=== PATIENT | male | born 1950 | race Caucasian/White ===

== ENCOUNTER 2022-10-31 03:26 | Emergency (ER) | payer MEDICARE, SELFPAY ==
[2022-10-31 03:34] VITALS: BP 187/105; PULSE 64; RESP 18; TEMP 36.6; O2SAT 96
--- NOTE | 2022-10-31 03:41 | ED_ITS ---
HPI - General Adult General Time Seen by Provider: 03:41 Date Seen: 10/31/22 Chief complaint: Back Injury/Pain Stated complaint: back pain Time Seen by Provider: 10/31/22 03:40 Source: patient, EMS, RN notes reviewed and old records reviewed Limitations: no limitations and language barrier History of Present Illness HPI narrative: 72-year-old male who comes in today after a fall. Patient is normally in a wheelchair, apparently got up and lost his balance, and fell. Denies head injury or loss of consciousness. He notes chronic back pain which sometimes comes in waves and neck is his legs buckle. He says his legs feel numb and weak for the past 10 days. He denies chest pain, nausea, vomiting. Says he feels a little short of breath. No bowel or bladder incontinence. Related Data Home Medications Medication Instructions Recorded Confirmed haloperidol 10 mg tablet 10 mg PO BID 10/31/22 10/31/22 ipratropium 18 mcg-albuterol 103 spray inhalation 10/31/22 mcg/actuation aerosol inhaler metformin 750 mg tablet,extended 750 mg PO BID 10/31/22 10/31/22 release 24 hr ziprasidone HCl 40 mg capsule 40 mg PO BID 10/31/22 10/31/22 Allergies Allergy/AdvReac Type Severity Reaction Status Date / Time No Known Drug Allergies Allergy Verified 10/31/22 03:39 [facility] Social History Smoking Status: Current every day smoker Non-prescribed substance use: denies use Exam Narrative: Exam Narrative: General: Well-developed and well-nourished, no acute distress Head: Atraumatic and normocephalic Eyes: Pupils are equal reactive, extraocular motions intact, conjunctiva clear ENT: External nose and ears are normal, posterior pharynx without erythema or exudate Neck: No midline cervical tenderness, full spontaneous range of motion the neck, trachea midline, no adenopathy Heart: Regular rate and rhythm no murmurs or thrills Lungs: Frequent dry cough, expiratory wheezes bilaterally with bibasilar crackles Abdomen: Soft, nontender, nondistended with active bowel sounds Musculoskeletal: No tenderness, deformity, or edema Neurologic: Awake, alert, and oriented x3, cranial nerves intact. Patient moves upper extremities easily. Diffusely decreased sensation of the lower extremities weakly withdraws to pain on both sides but less on the right. Weak plantar flexion, no dorsiflexion, unable to flex or extend the knees. Unable to straight leg raise and does not maintain posture when the leg is raised off the bed, leg falls to the bed when released. Psych: Mood and affect are appropriate Skin: No rashes Const: Vital Signs, click to edit/add: Vital Signs - 24 hr 10/31/22 03:34 10/31/22 04:43 10/31/22 04:56 Temperature 98 F Pulse Rate [Pulse Oximeter] 64 75 64 Respiratory Rate 18 18 18 Blood Pressure [Ri ght Upper Arm] 187/105 H 167/94 H Pulse Oximetry 96 96 94 Oxygen Delivery Me thod Room Air Room Air Room Air Course Course Hospital Course: Patient seen examined, prior records reviewed. Patient presents today with chronic back pain and says his legs feel weak for the last 10 days. On exam, weekly withdraws to pain on both sides but cannot voluntarily dorsiflex at the ankle nor flex or extend at the knee. Cannot straight leg raise from the bed or keep the leg elevated with assistance,, legs drop the bed when released. Diminished reflexes bilaterally, no inducible clonus. He does have a cough although no hypoxia or fever. Labs are ordered along with chest x-ray med CT scan of the thoracic and lumbar spine. Reevaluation(s) Time of Reevaluation #1: 04:24 Reevaluation #1: 04:[address] scan of the chest independently interpreted by me demonstrates some bronchial thickening and atelectasis but no definite infiltrate or effusion, there are couple of nodules. CT of the thoracic spine appears to show a lytic bony lesion at T4, CT scan of the lumbar spine does not demonstrate any acute abnormality. . Time of Reevaluation #2: 05:09 Reevaluation #2: Care discussed with Dr. Laura, radiology with T5 pathologic compression fracture with severe foraminal stenosis and soft tissue mass, also lung tumor. Updated patient with diagnosis, patient has no preference as to transfer location Time of Reevaluation #3: 05:48 Reevaluation #3: Care discussed with Dr. Vaca, ED attending at [facility] who accepts the patient for transfer as patient will need neurosurgical and neurology evaluation as well as advanced imaging. Vital Signs Vital signs: Initial Vital Signs Temperature 98 F 10/31/22 03:34 Temperature Source Temporal Artery Scan 10/31/22 03:34 Pulse Rate 64 10/31/22 03:34 Respiratory Rate 18 10/31/22 03:34 Blood Pressure 187/105 H 10/31/22 03:34 Blood Pressure Mean 132 H 10/31/22 03:34 Blood Pressure Position Supine 10/31/22 03:34 Pulse Oximetry 96 10/31/22 03:34 Oxygen Delivery Method Room Air 10/31/22 03:34 Vital Signs Temperature 98 F 10/31/22 03:34 Pulse Rate 64 10/31/22 03:34 Respiratory Rate 18 10/31/22 03:34 Blood Pressure 187/105 H 10/31/22 03:34 Pulse Oximetry 96 10/31/22 03:34 Oxygen Delivery Method Room Air 10/31/22 03:34 Temperature 98 F 10/31/22 03:34 Pulse Rate 64 10/31/22 04:56 Respiratory Rate 18 10/31/22 04:56 Blood Pressure 167/94 H 10/31/22 04:56 Pulse Oximetry 94 10/31/22 04:56 Oxygen Delivery Method Room Air 10/31/22 04:56 Medical Decision Making Lab Data Labs: Lab Results 10/31/22 Range/Units 04:29 WBC 10.22 (4.50-11.00) K/uL RBC 4.90 (4.30-5.90) m/uL Hgb 15.4 (13.5-17.5) gm/dL Hct 45.6 (37.0-53.0) % MCV 93 (80-100) fL MCH 31 (26-34) pg MCHC 34 (32-36) gm/dL RDW Coeff of William 13.1 (11.5-15.5) % Plt Count 249 (140-440) K/uL Neut % (Auto) 83.1 H (42.0-72.0) % Lymph % (Auto) 9.3 L (20-44) % Nolan % (Auto) 6.7 (0.0-11.0) % Eos % (Auto) 0.7 (0.0-7.0) % Baso % (Auto) 0.1 (0.0-3.0) % Neut # (Auto) 8.50 H (1.7-7.0) K/uL Lymph # (Auto) 1.00 (0.90-2.90) K/uL Nolan # (Auto) 0.70 (0.00-0.90) K/UL Eos # (Auto) 0.07 (0.00-0.50) K/uL Baso # (Auto) 0.01 (0.00-0.30) K/uL Sodium 140 (135-149) mmol/L Potassium 3.4 L (3.6-5.1) mmol/L Chloride 104 (96-114) mmol/L Carbon Dioxide 28 (20-32) mmol/L BUN 9 (7-30) mg/dL Creatinine 0.7 (0.5-1.5) mg/dL Estimated GFR 99 ml/min Glucose 115 (60-115) mg/dL Calcium 9.5 (8.4-10.6) mg/dL Magnesium 1.7 (1.5-2.6) mg/dL NT-Pro-B Natriuret Pep 49 pg/mL Critical Care Time Critical Care Time Critical Care Time: Yes (Thoracic fracture/mass with neurologic deficits) Attestation: The patient required my highest level preparedness to intervene emergently and I personally spent this critical care time directly and personally managing the patient. This critical care time included: Obtaining a history; Examining the patient; Pulse oximetry; Ordering and reviewing of studies; Arranging urgent treatment with development of a management plan; Evaluation of patients response to treatment; Frequent reassessment discussions with other providers. This critical care time was performed to assess and manage the high probability of imminent life-threatening deterioration that could result in multiorgan failure. It was exclusive of separate billable procedures and treating other patients and teaching time. Total Critical Care Time in Minutes: 120 Discharge Plan Discharge Clinical Impression: Schizophrenia, Weakness, COPD (chronic obstructive pulmonary disease), Current nicotine use Prescriptions: No Action haloperidol 10 mg tablet 10 mg PO BID ziprasidone HCl 40 mg capsule 40 mg PO BID metformin 750 mg tablet extended release 24 hr 750 mg PO BID ipratropium-albuterol 18-103 mcg/actuation aerosol inhalation
--- NOTE | 2022-10-31 03:54 | CRLHL7_ITS ---
For Patients: As a result of the Century Cures Act, medical imaging exams and procedure reports are released immediately into your electronic medical record. You may view this report before your referring provider. If you have questions, please contact your health care provider. INDICATION: back pain, legs numb TECHNIQUE: CT thoracic spine without contrast. COMPARISON: None. FINDINGS: Pathologic compression deformity with soft tissue mass within the vertebral body at T5 with extension into the bilateral posterior elements. There is associated at least moderate to severe effacement of the spinal canal at this level. Additionally there is lytic lesion/soft tissue involvement involving the right pedicle and posterior elements with moderate to severe effacement of predominantly the right posterior-lateral aspect of the spinal canal and right neural foramen. Severe effacement of the bilateral T5-6 neural foramen also noted. Additional lytic lesions within the T9 vertebral body and right 4th rib. Recommend contrast-enhanced MRI to better evaluate the extent of these findings. Mild multilevel anterior disc space narrowing and facet arthropathy. Multilevel anterior osteophytosis. No significant spondylolisthesis. Lung findings discussed on same-day CT chest. IMPRESSION: Pathologic compression deformity with soft tissue mass within the vertebral body at T5 with extension into the bilateral posterior elements. There is associated at least moderate to severe effacement of the spinal canal at this level. Additionally there is lytic lesion/soft tissue involvement involving the right pedicle and posterior elements with moderate to severe effacement of predominantly the right posterior-lateral aspect of the spinal canal and right neural foramen. Severe effacement of the bilateral T5-6 neural foramen also noted. Additional lytic lesions within the T9 vertebral body and right 4th rib. Recommend contrast-enhanced MRI to better evaluate the extent of these findings. Findings discussed with Dr. Hung Duong at 5:10 a.m. Please note that all CT scans at this facility use dose modulation, iterative reconstruction, and/or weight-based dosing when appropriate to reduce radiation dose to as low as reasonably achievable. Dictated by Charles Laura MD @ 10/31/2022 5:16:13 AM (Electronically Signed)
--- NOTE | 2022-10-31 03:54 | CRLHL7_ITS ---
For Patients: As a result of the Century Cures Act, medical imaging exams and procedure reports are released immediately into your electronic medical record. You may view this report before your referring provider. If you have questions, please contact your health care provider. INDICATION: Cough TECHNIQUE: CT chest without contrast. COMPARISON: None. FINDINGS: Lungs and pleura: Bilateral subpleural reticulation most compatible with [id number] pulmonary fibrosis. Peripheral right upper lobe solid pulmonary nodule measuring 1.3 by 1.0 cm (series 4, image 49). Few tiny bilateral calcified granulomas with probable calcified granuloma abutting the described right upper lobe pulmonary nodule. Additionally, there is a 6 mm by nodule within the left upper lobe (series 4, image 49). No evidence of focal consolidation, effusion, or pneumothorax. Heart and vasculature: Heart size is normal. Thoracic aorta and pulmonary artery are normal in caliber.Coronary artery and thoracic aortic calcifications. Lymph nodes/mediastinum: No enlarged lymph nodes by size criteria. Calcified right hilar lymph nodes. Chest wall: No masses. Upper abdomen: No significant findings. Bones: Pathologic compression deformity with soft tissue mass within the vertebral body at T5 with extension into the bilateral posterior elements. There is associated at least moderate to severe effacement of the spinal canal at this level. Additionally there is lytic lesion/soft tissue involvement involving the right pedicle and posterior elements with moderate to severe effacement of predominantly the right posterior-lateral aspect of the spinal canal and right neural foramen. Severe effacement of the bilateral T5-6 neural foramen also noted. Vertebral body lytic lesion at T9 and right 4th rib. Multilevel bridging anterior osteophytosis. IMPRESSION: 1. Pathologic compression deformity with soft tissue mass within the vertebral body at T5 with extension into the bilateral posterior elements. There is associated at least moderate to severe effacement of the spinal canal at this level. Additionally there is lytic lesion/soft tissue involvement involving the right pedicle and posterior elements with moderate to severe effacement of predominantly the right posterior-lateral aspect of the spinal canal and right neural foramen. Severe effacement of the bilateral T5-6 neural foramen also noted. Additional lytic lesions within the T9 vertebral body and right 4th rib. Recommend contrast-enhanced MRI to better evaluate the extent of these findings. 2. Peripheral right upper lobe solid pulmonary nodule measuring 1.3 x 1.0 cm. Given the thoracic findings a primary malignancy pulmonary cannot be excluded. 3. [id number] pulmonary fibrosis. Findings discussed with Dr. Hung Duong at 5:10 a.m.. Please note that all CT scans at this facility use dose modulation, iterative reconstruction, and/or weight-based dosing when appropriate to reduce radiation dose to as low as reasonably achievable. Dictated by Chalres Laura MD @ 10/31/2022 5:14:17 AM (Electronically Signed)
--- NOTE | 2022-10-31 03:54 | CRLHL7_ITS ---
For Patients: As a result of the Cures Act, medical imaging exams and procedure reports are released immediately into your electronic medical record. You may view this report before your referring provider. If you have questions, please contact your health care provider. INDICATION: back pain, legs numb TECHNIQUE: CT lumbar spine without contrast. COMPARISON: None. FINDINGS: No evidence of acute compression deformity. Bilateral L5 pars defects without significant spondylolisthesis. No evidence of lumbar lytic lesion is identified. Mild multilevel intervertebral space narrowing facet arthropathy. Colonic diverticulosis. Paraspinal soft tissues appear unremarkable. IMPRESSION: No evidence of acute compression deformity or lytic lesion. Chronic L5 pars defects. Mild degenerative spondylosis. Colonic diverticulosis. Please note that all CT scans at this facility use dose modulation, iterative reconstruction, and/or weight-based dosing when appropriate to reduce radiation dose to as low as reasonably achievable. Dictated by Charles Laura MD @ 10/31/2022 5:19:06 AM (Electronically Signed)
[2022-10-31 04:43] VITALS: PULSE 75; RESP 18; O2SAT 96
--- NOTE | 2022-10-31 04:46 | PC.NURSE ---
patient declines BP recheck at this time
[2022-10-31 04:56] VITALS: BP 167/94; PULSE 64; RESP 18; O2SAT 94
[2022-10-31 04:56] LABS: Basophils Absolute Auto 0.01 K/uL (0.00-0.30); Basophils Percent Auto 0.1 % (0.0-3.0); Eosinophils Absolute Auto 0.07 K/uL (0.00-0.50); Eosinophils Percent Auto 0.7 % (0.0-7.0); Hematocrit 45.6 % (37.0-53.0); Hemoglobin* 15.4 gm/dL (13.5-17.5); Immature Granulocytes Abs Auto 0.01 K/uL (0.00-0.30); Immature Granulocytes Pct Auto 0.1 %; Lymphocytes Percent Auto 9.3 % (20-44); Mean Corpuscular HGB Conc 34 gm/dL (32-36); Mean Corpuscular Hemoglobin 31 pg (26-34); Mean Corpuscular Volume 93 fL (80-100); Monocytes Percent Auto 6.7 % (0.0-11.0); Neutrophils Percent Auto 83.1 % (42.0-72.0); Platelet Count* 249 K/uL (140-440); RDW Coefficient of Variation % 13.1 % (11.5-15.5); White Blood Count* 10.22 K/uL (4.50-11.00)
[2022-10-31 05:01] LABS: Slide Review Reflex No
[2022-10-31 05:05] LABS: Chloride* 104 mmol/L (96-114); Potassium* 3.4 mmol/L (3.6-5.1); Sodium* 140 mmol/L (135-149)
[2022-10-31 05:08] LABS: Blood Urea Nitrogen* 9 mg/dL (7-30); Calcium* 9.5 mg/dL (8.4-10.6); Carbon Dioxide* 28 mmol/L (20-32); Creatinine* 0.7 mg/dL (0.5-1.5); Estimated Glomerular Filt Rate 99 ml/min; Glucose* 115 mg/dL (60-115); Magnesium* 1.7 mg/dL (1.5-2.6)
[2022-10-31 05:18] LABS: NT Pro B Type NatriureticPept* 49 pg/mL
[2022-10-31 06:00] VITALS: BP 161/90; PULSE 60; RESP 20; TEMP 36.6; O2SAT 94
--- NOTE | 2022-10-31 06:03 | PC.NURSE ---
call placed to [facility] to give update on patients plan of care. spoke to Desirae littlejohn staff
--- NOTE | 2022-10-31 06:27 | PC.NURSE ---
patient transfered to EMS for transport
--- NOTE | 2022-10-31 06:35 | PC.NURSE ---
nurse to nurse report given to Alexia MILIAN at [facility]
== END 2022-10-31 06:36 | disposition short-term general hospital (02) ==
PROVIDERS: Emergency Provider Family Medicine; PCP Physician Assistant
DX: J44.9 Chronic obstructive pulmonary disease, unspecified (principal); R53.1 Weakness; F20.9 Schizophrenia, unspecified
CPT/HCPCS: 36415; 71250; 72128; 72131; 80048; 81001; 83735; 83880; 85025; 99285; 99291; 99292; A0425; A0428; A0429